=== PATIENT | female | born 1980 | race African-American/Black ===

== ENCOUNTER 2019-05-20 08:41 | Emergency (ER) | payer OTHER ==
[~2019-05-20] VITALS: Ht 172.7 cm; Wt 117.9 kg
[2019-05-20] MEDS ORDERED: traMADol HCL 50 MG TAB PO ONE (10:15)
[2019-05-20 12:49] VITALS: BP 157/86
== END 2019-05-20 12:50 | disposition home or self-care (01) ==
LOC: ER 08:41
DX: S46.911A Strain of unspecified muscle, fascia and tendon at shoulder and upper arm level, right arm, initial encounter (principal); X50.1XXA Overexertion from prolonged static or awkward postures, initial encounter; Y93.89 Activity, other specified; Y92.69 Other specified industrial and construction area as the place of occurrence of the external cause; Y99.8 Other external cause status
CPT/HCPCS: 73030